=== PATIENT | female | born 1945 | race Caucasian/White ===

== ENCOUNTER 2018-04-30 21:56 | Inpatient (IN) ==
[2018-04-30 23:07] LABS: INR 0.95; PROTIME 13.2 Seconds (11.0-16.0)
[2018-04-30 23:08] LABS: PTT 34.2 Seconds (22.3-41.8)
[2018-04-30 23:11] LABS: BASO# 0.02 X1000 (0.0-0.2); BASO% 0.2 % (0.0-0.8); EOS# 0.07 X1000 (0.0-0.7); EOS% 0.7 % (0.0-10.0); HEMATOCRIT 37.8 % (37.0-47.0); HEMOGLOBIN 12.2 g/dL (12.0-16.0); IMM GRAN# 0.03 X1000 (0.0-0.04); IMM GRAN% 0.3 % (0.0-0.5); LYMPH# 0.79 X1000 (1.2-3.4); LYMPH% 7.8 % (20.5-51.1); MCH 26.3 PG (27-31); MCHC 32.3 g/dL (33-37); MCV 81.5 FL (81-99); MONO# 0.46 X1000 (0.11-0.59); MONO% 4.5 % (1.7-9.3); MPV 9.6 FL (7.4-10.4); NEUT# 8.77 X1000 (1.4-6.5); NEUT% 86.5 % (42.2-75.2); PLT 331 X1000 (130-400); RBC 4.64 XMIL (4.2-5.4); RDW 15.9 % (11.5-14.5); WBC 10.14 X1000 (4.8-10.8)
[2018-04-30 23:15] LABS: CALCIUM 9.5 mg/dL (8.8-10.2); CREATININE 1.1 mg/dL (0.5-0.9); POTASSIUM 4.6 mmol/L (3.5-5.1); TOTAL BILIRUBIN 0.3 mg/dL (0.20-1.00)
--- NOTE | 2018-05-01 01:42 | EKG Report ---
Test Performed on : 04/30/2018 10:01:38 PM Test Reason : cp Blood Pressure : / mmHG Vent. Rate : 081 BPM Atrial Rate : 081 BPM P-R Int : 224 ms QRS Dur : 084 ms QT Int : 376 ms P-R-T Axes : 000 000 005 degrees QTc Int : 436 ms Sinus rhythm. with 1st degree AV block. Possible Anterior infarct , age undetermined Abnormal ECG No previous ECGs available Unconfirmed Result
--- NOTE | 2018-05-01 03:23 | EKG Report ---
Test Performed on : 05/01/2018 02:59:52 AM Test Reason : chest pain Blood Pressure : / mmHG Vent. Rate : 085 BPM Atrial Rate : 085 BPM P-R Int : 188 ms QRS Dur : 084 ms QT Int : 382 ms P-R-T Axes : 111 -03 001 degrees QTc Int : 454 ms Normal sinus rhythm. ST & T wave abnormality, consider anterior ischemia Abnormal ECG When compared with ECG of 30-APR-2018 22:01, (Unconfirmed) [place] interval has decreased Unconfirmed Result
[2018-05-01] MEDS ORDERED: LOVENOX 1 MG/KG SUBQ ONE (03:41)
--- NOTE | 2018-05-01 03:42 | PROVIDER DOCUMENTATION ---
This chart was entered by Prachi Durand Scribe, acting as scribe for Gerald Cazares MD. HPI-Chest Pain - General Chief Complaint: Epigastric Pain Stated Complaint: chest pain but no longer numbness in arm Time Seen by Provider: 04/30/18 23:05 Source: patient Allergies/Adverse Reactions: Patient Allergies Allergy/AdvReac Type Severity Reaction Status Date / Time erythromycin base Allergy HIVES Verified 04/30/18 22:13 [From Erythrocin] Penicillins AdvReac HIVES Verified 12/15/17 07:00 Tetracyclines AdvReac HIVES Verified 12/15/17 07:00 Home Medications: Home Medication List Medication Instructions Recorded Confirmed Last Taken Type Aspirin [Aspir-Low] 81 mg PO DAILY 04/30/18 05/01/18 Unknown History Bisoprolol [Zebeta] 1 tab PO DAILY 04/30/18 05/01/18 Unknown History Esomeprazole [Nexium] 40 mg PO DAILY 04/30/18 05/01/18 Unknown History Fluoxetine HCl [Prozac] 40 mg PO DAILY 04/30/18 05/01/18 Unknown History Fluticasone Propionate [Flonase 2 spray ORDERED DAILY 04/30/18 05/01/18 Unknown History Allergy Relief] Hydrocodone/Acetaminophen 1 each PO BID 04/30/18 05/01/18 Unknown History [Hydrocodone-Acetamin 5-300 mg] Losartan Potassium 100 mg PO DAILY 04/30/18 05/01/18 Unknown History Metformin [Glucophage] 850 mg PO BID CC 04/30/18 05/01/18 Unknown History Montelukast Sodium [Singulair] 10 mg PO DAILY 04/30/18 05/01/18 Unknown History Naproxen 500 mg PO BID 04/30/18 05/01/18 Unknown History ROSUVAstatin [Crestor] 10 mg PO DAILY 04/30/18 05/01/18 Unknown History Apixaban [Eliquis] 5 mg PO BID #60 tab 05/02/18 Unknown Rx Apixaban [Eliquis] 10 mg PO BID #14 tab.ds.pk 05/02/18 Unknown Rx - History of Present Illness-CP Nature of Presenting Problem: pt is a 72 yr old female presenting via EMS with complaint of central chest pain radiating into bilateral arms and epigastrum, pt reports pain resolved prior to arrival to ER, pt reports recent cardiac workup within the last 2-3 months that was normal. pt denies shortness of breath, nausea or vomiting Location: reports: central Chest Pain Radiation: reports: arms (bilateral arms), epigastric Quality of Pain: reports: burning Severity in ED: moderate Onset/Duration: this evening Timing: resolved prior to arrival Context/Activities at Onset: reports: light activity Modifying Factors: improves with: nothing Nitro Today/Relief: no nitro taken today Aspirin Treatment Today: 81 mg x 4, provided by EMS Prior Chest Pain/Cardiac Workup: reports: other (cardiac workup within the last 2-3 months-normal per pt) Similar Symptoms Previously?: Yes Recently Seen Here or By Another Healthcare Provider: Yes Review of Systems - Adult - REVIEW OF SYSTEMS - ADULT Constitutional: reports: no symptoms reported Eyes: denies: blurred vision, double vision Ears, Nose, Mouth & Throat: reports: no symptoms reported Cardiovascular: reports: chest pain. denies: palpitations, syncope Respiratory: denies: cough, shortness of breath Gastrointestinal: reports: nausea. denies: vomiting Genitourinary: reports: no symptoms reported Musculoskeletal: reports: no symptoms reported Integumentary: reports: no symptoms reported Neurological: reports: no symptoms reported Psychiatric: reports: no symptoms reported Endocrine: reports: no symptoms reported Hematologic/Lymphatic: reports: no symptoms reported Allergic/Immunologic: reports: no symptoms reported All Other Systems: Reviewed and Negative Past History - Adult - PAST MEDICAL HISTORY-ADULT Review of Records: reports: Old Records Reviewed, Nursing Assessment Review, Medications Reviewed, Social history reviewed & non-contributory. Major Childhood Illnesses: reports: denies history Cardiovascular: reports: HTN, hyperlipidemia Respiratory: reports: denies history Gastrointestinal: reports: GERD Obstetrical/Gynecological: reports: denies history Genitourinary: reports: denies history Musculoskeletal: reports: chronic pain, osteoporosis, other (bilateral knee DJD) Neurological: reports: denies history Psychiatric: reports: denies history Endocrine/Immune: reports: Diabetes Other Conditions: reports: denies history - PRIOR SURGERIES/PROCEDURES Surgical/Procedure History: reports: reviewed, not pertinent - IMMUNIZATION STATUS Childhood Immunizations: UTD Flu Vaccine: NUTD - FAMILY HISTORY Family History: diabetes, CAD over 55 yo, cancer, CVA/TIA - SOCIAL HISTORY Smoking: quit greater than 1 year Substance Use: denies Living Situation: family Physical Exam-General - PHYSICAL EXAM-ADULT Initial Vital Signs Reviewed: Yes - CONSTITUTIONAL General Appearance: alert, no apparent distress, obese (morbid) - EYES Eyes: PERRL/EOMI - HEAD, EARS, NOSE, MOUTH & THROAT HENMT: normocephalic/atraumatic, moist mucous membranes, normal ENT inspection - NECK Neck: non-tender, full range of motion, supple, normal inspection - RESPIRATORY Respiratory: chest non-tender, lungs clear, normal breath sounds - CARDIOVASCULAR Cardiovascular: normal peripheral pulses, regular rate, rhythm - GASTROINTESTINAL (ABDOMEN) Abdominal Exam: normal bowel sounds, non tender, soft - LYMPHATIC Lymphatic: no adenopathy - MUSCULOSKELETAL Back Exam: normal inspection, no CVA tenderness, no vertebral tenderness Extremity: normal range of motion, non-tender, normal gait, pedal edema (trace) - SKIN Integumentary: normal color, normal turgor, warm/dry - NEUROLOGIC Neurologic: grossly normal, no motor/sensory deficits - PSYCHIATRIC Psych/Mental Status: normal mood/affect, normal thought content, normal thought process, oriented x 3 Progress - PLAN OF CARE/RESULTS Progress/Plan/Lab Results: Orders Category Date Time Status Admit - [facility] Routine AdmDCTranf 05/01/18 03:54 Active Activity - Strict Bedrest ORDERED Care 05/01/18 03:54 Completed Call Admitting on Arrival AT ADMISSION Care 05/01/18 03:55 Completed Cardiac Monitoring DIRECTED Care 04/30/18 22:51 Completed Oxygen Therapy- ED Nursing DIRECTED Care 04/30/18 22:51 Completed Saline Loc NOW Care 04/30/18 22:51 Completed Vital Signs Order Q 8-HR ASSESS Care 05/01/18 03:54 Active Z-Document. for Tele Applied ORDERED Care 05/01/18 03:55 Completed CHEST-2 VIEWS [RAD] Stat Exams 04/30/18 22:[address] ANGIOGRM PULMONARY ARTERIES [CT] Stat Exams 05/01/18 01:24 Completed CBC WITH ELECTRONIC DIFF [HEME] Stat Lab 04/30/18 22:18 Completed CK PROFILE [SP CHEM] Stat Lab 04/30/18 22:18 Completed CK PROFILE [SP CHEM] Stat Lab 05/01/18 03:14 Completed COMPREHENSIVE METABOLIC PANEL [CHEM] Stat Lab 04/30/18 22:18 Completed D-DIMER [COAG] Stat Lab 04/30/18 22:18 Completed PRO B-NATRIURETIC PEPTIDE Stat Lab 04/30/18 22:18 Completed PROTIME WITH INR [COAG] Stat Lab 04/30/18 22:18 Completed PTT [COAG] Stat Lab 04/30/18 22:18 Completed TROPONIN T Stat Lab 04/30/18 22:18 Completed TROPONIN T Stat Lab 05/01/18 03:14 Completed Acetaminophen [Tylenol] Med 05/01/18 03:54 Active 650 mg PO Q6H PRN PRN Enoxaparin 1 mg/kg [Lovenox 1 mg/kg] Med 05/01/18 03:41 Discontinued 1 each SUBQ NOW ONE Enoxaparin [Lovenox] Med 05/01/18 04:00 Discontinued 120 mg SUBQ NOW ONE Ondansetron [Zofran] Med 05/01/18 03:54 Active 4 mg IV Q4H PRN PRN CP/SOB/Palp >45 yrs of Age Stat Oth 04/30/18 22:51 Ordered Oxygen Device Routine Oth 05/01/18 03:55 Completed Telemetry [OM.EQ] Routine Oth 05/01/18 03:54 Active EKG [EKG] Stat Ther 04/30/18 22:51 Draft EKG [EKG] Stat Ther 05/01/18 01:22 Draft Transfer/Admit Order [TRANSFER] Routine Transfer 05/01/18 03:56 Completed Result Diagrams: 05/03/18 05:50 05/03/18 05:50 - EKG 1 Time of EKG reading by physician:: 22:02 EKG Read and Signed by:: Gerald Cazares EKG Interpretation (*Must complete 3 of following elements*): Abnormal ( possible anteroir infarct-age undetermined) Rate: 81 Rhythm: sinus rhythm with 1st degree av block [place]: normal 2 Time of EKG reading by physician:: 03:00 EKG Read and Signed by:: Gerald Cazares EKG Interpretation (*Must complete 3 of following elements*): Abnormal (st and t wave abnormality, consider anteroir ischemia) Rate: 85 Rhythm: nsr [place]: normal QRS: normal SC Interval: normal ST Wave: normal - XRAY 1 XRAY Study: Chest Impression: Abnormal (no acute cardiac pathology, noted aortic knob with calcification) - CT/MRI 1 CT Study: Angiogram, Thorax Impression: Abnormal (acute pulmonary embolism; possible right ventricular strain) - CONSULTS/PCP/HOSPITALIST Notification #1 *Consult/PCP/Hospitalist*: Dr Thorne Time Discussed: 03:40 Consult Disposition: Admit Departure - Departure Date of Disposition Decision: 05/01/18 Time of Disposition Decision: 03:40 DIAGNOSIS: Acute pulmonary embolism Qualifiers: Pulmonary embolism type: unspecified Acute cor pulmonale presence: without acute cor pulmonale Qualified Code(s): I26.99 - Other pulmonary embolism without acute cor pulmonale Disposition: ADMITTED INPATIENT 09 Certified Medical Emergency: Emergent Condition: Serious - Critical Care Note This patient required my direct & personal management of CC.: No Attestation - Physician/ SILVANA Attestation The physician spent face to face time with patient:: Yes Advanced Practice Provider documentation review:: Supervising physician onsite and consulted in the evaluation and care of this patient. The physician did have a face to face encounter with the patient. This chart was documented by the indicated scribe, (Prachi Durand Scribe) and accurately reflects the services I performed and decisions made by me, Gerald Cazares MD, as attested by the provider's signature.
[2018-05-01] MEDS ORDERED: ZOFRAN IV PRN (03:54)
[2018-05-01] MEDS ORDERED: LOVENOX SUBQ ONE (04:00)
--- NOTE | 2018-05-01 08:41 | Diag Imaging Result Doc PS360 ---
CHEST-2 VIEWS - 04/30/2018 INDICATION: chest pain COMPARISON: 12/15/2017 FINDINGS: The lungs are normally expanded and clear. Heart size and mediastinal contours are normal. No pneumothorax or pleural effusion. IMPRESSION: Negative exam. Electronically signed by Surinder Rangel 05/01/2018 8:38 AM
[2018-05-01 08:54] LABS: BASO# 0.02 X1000 (0.0-0.2); BASO% 0.2 % (0.0-0.8); EOS# 0.15 X1000 (0.0-0.7); EOS% 1.2 % (0.0-10.0); HEMATOCRIT 39.1 % (37.0-47.0); HEMOGLOBIN 12.7 g/dL (12.0-16.0); IMM GRAN# 0.06 X1000 (0.0-0.04); IMM GRAN% 0.5 % (0.0-0.5); LYMPH# 2.11 X1000 (1.2-3.4); LYMPH% 17.4 % (20.5-51.1); MCHC 32.5 g/dL (33-37); MONO# 0.86 X1000 (0.11-0.59); MONO% 7.1 % (1.7-9.3); MPV 9.2 FL (7.4-10.4); NEUT# 8.91 X1000 (1.4-6.5); NEUT% 73.6 % (42.2-75.2); PLT 400 X1000 (130-400); RBC 4.89 XMIL (4.2-5.4); RDW 15.8 % (11.5-14.5); WBC 12.11 X1000 (4.8-10.8)
[2018-05-01 09:16] LABS: ALBUMIN 4.2 g/dL (3.5-5.0); CREATININE 1.2 mg/dL (0.5-0.9); POTASSIUM 4.3 mmol/L (3.5-5.1); TOTAL BILIRUBIN 0.3 mg/dL (0.20-1.00); TOTAL PROTEIN 7.1 g/dL (6.3-8.3)
--- NOTE | 2018-05-01 09:54 | Diag Imaging Result Doc PS360 ---
CT ANGIOGRM PULMONARY ARTERIES - 05/01/2018 INDICATION: chest pain TECHNIQUE: Axial CT images were obtained after administering intravenous contrast. Coronal MIP images were generated. COMPARISON: None FINDINGS: There are numerous acute pulmonary emboli bilaterally involving all the lobar arteries and numerous segmental arteries. The right ventricle is somewhat dilated, there may be right heart strain as a result. Overall the heart size is normal. No mass or adenopathy. The lungs are clear of infiltrate. There are moderate degenerative changes of the spine. No acute or suspicious bony lesion. IMPRESSION: Extensive bilateral acute pulmonary embolism. Right heart strain. This report was discussed with Dr. Cazares on 05/01/2018 at 3:16 AM and was readback. This exam was performed using automated exposure control, adjustment of mA or kV according to patient size, and/or use of iterative reconstruction technique Electronically signed by Surinder Rangel 05/01/2018 9:52 AM
--- NOTE | 2018-05-01 15:32 | HISTORY AND PHYSICAL ---
CHIEF COMPLAINT: Shortness of breath, chest pain. HISTORY OF PRESENT ILLNESS: This is a 72-year-old female with a history of hypertension, diabetes mellitus and gastroesophageal reflux disease. She presented to the emergency room after having a sudden onset of central chest pain that radiated into both arms. She stated this started while she was walking back from her bathroom to her bed. She stated she had a sudden onset of shortness of breath, feeling like she could not get her breath. She experienced epigastric burning. She denied any syncope or palpitations. The patient has had chest pain over the past few months although it was nothing like this, in fact she had a myocardial perfusion scan on April 05 that was a low risk for ischemic events with no scintigraphic evidence pharmacologically induced myocardial ischemia. She had EF of 77% with normal ventricular wall motions at that time. She was found to have an elevated D-dimer therefore CTA pulmonary was performed which revealed extensive bilateral acute pulmonary embolism with right heart strain. PAST MEDICAL HISTORY: Hypertension, diabetes mellitus, gastroesophageal reflux disease. PAST SURGICAL HISTORY: Cholecystectomy, appendectomy, arthroscopy, hysterectomy, tonsillectomy. SOCIAL HISTORY: She denies alcohol, tobacco, or illicit drug use. ALLERGIES: Erythromycin, penicillin and tetracyclines all cause hives. HOME MEDICATIONS: A list will be obtained by the nursing staff. Once verified will review and restart as appropriate. REVIEW OF SYSTEMS: Discussed with the patient with pertinent positives stated in the HPI. She denied any syncope, dizziness, productive cough, fever, chills, any night sweats, any nausea, vomiting, diarrhea, constipation, black or bloody vomitus or stools, any hematuria, dysuria, frequency, urgency. PHYSICAL EXAMINATION: GENERAL: This is a 72-year-old female who is sitting up in the bed in no distress. VITAL SIGNS: Blood pressure is 139/72 with a heart rate of 79, respirations are 18, temperature is 97.8 degrees oral with room air saturations 96 to 98%. HEENT: Pupils equal, round, react to light EOMs are intact sclerae anicteric. Head is normocephalic, atraumatic. Mucous membranes are moist. NECK: Supple with trachea midline. CARDIOVASCULAR: Regular rate and rhythm. S1 and S2 appreciated. She has no lower extremity edema with peripheral pulses palpable x4 extremities. PULMONARY: Breath sounds are clear. Chest rises and falls symmetrically with respiration. Chest wall is nontender to palpation. GASTROINTESTINAL: Abdomen soft, nontender, nondistended with bowel sounds in all 4 quadrants. NEUROLOGIC: She is alert and oriented x3. LABS: WBC is 10.1 with a hemoglobin of 12.2, hematocrit 37.8, platelets of 331,000, D-dimer is 3.38. Sodium 137, potassium 4.6, BUN 34 with a creatinine of 1.1, glucose is 128. Troponins are negative on multiple occasions with a proBNP of 489 [*] 0.070, 0.107, 0.086. Pulmonary arteriogram revealed extensive bilateral acute pulmonary emboli with right heart strain. Lungs are clear of infiltrate. Heart size is normal with no mass or adenopathy. ASSESSMENT AND PLAN: 1. Bilateral pulmonary embolus. 2. Shortness of breath secondary to #1. 3. Chest pain secondary to #1. 4. Hypertension. 5. Gastroesophageal reflux disease. 6. Diabetes mellitus. PLAN: 1. The patient has been admitted to the medical-surgical floor and placed on telemetry. We will start incentive spirometer. We will obtain echocardiogram as well as bilateral lower extremity Doppler. We will give supplemental oxygen as needed. We will encourage her to be up in the chair. Will obtain hypercoagulable studies and repeat a CBC and a BMP in the morning. She will be placed on pattern blood glucose with sliding scale insulin. She was given Lovenox in the emergency room 1 mg/kg. Will give this every 12 hours and will have social media developer check on Eliquis affordability. We will continue her home medicines. Will hold her Glucophage for the next 48 hours as she did have IV contrast. 2. For GI prophylaxis will continue her home medications. Further treatments pending hospital course. Dictated by SHNATHI Kohli for Vinny Allen MD This chart was documented by, SHANTHI Kohli and accurately reflects the services performed, treatment plan and medical decisions as attested by the providers signature Vinny Allen MD. cc: SHANTHI Kohli MD
--- NOTE | 2018-05-01 16:42 | ECHO REPORT ---
ORDER DATE: 05/01/2018 ECHOCARDIOGRAPHIC MEASUREMENTS: 1. Interventricular septum 1.2, left ventricular posterior wall 1.0, diastolic diameter 4.3, systolic diameter 2.5, left atrium 3.8, aorta 3.0. 2. Aortic valve leaflets are trileaflet. 3. Pulmonic valve was normal. 4. Mitral valve was normal. 5. Tricuspid valve was normal. 6. Aortic valve leaflets are trileaflet. 7. Normal left ventricular cavity size. Estimated ejection fraction of 65 to 70%. 8. There is mild left atrial enlargement. 9. There is mild diastolic dysfunction. 10. There is mild mitral regurgitation. 11. There is no aortic stenosis or regurgitation. 12. Peak velocity across the tricuspid valve was 3.3 m/sec. Pulmonary artery systolic pressure of 53 mmHg. There is moderate tricuspid regurgitation. 13. There is no pericardial effusion or obvious intracardiac mass or thrombus seen. 14. Right ventricle was mildly dilated. cc: MD Yuliana Hidalgo CRNP
[2018-05-01] MEDS: LOVENOX SUBQ SCH (17:04)
[2018-05-01] MEDS: HUMALOG (PARKWAY) SUBQ SCH ×2 (17:04→21:11)
--- NOTE | 2018-05-01 19:39 | HISTORY AND PHYSICAL ---
CHIEF COMPLAINT: Shortness of breath. HISTORY AND PHYSICAL ADDENDUM: Patient seen and examined by myself. Full note dictated and discussed with nurse practitioner. Patient presented to the hospital with chest pain and shortness of breath. She was subsequently diagnosed with pulmonary emboli. Interesting, both her son and daughter are on Eliquis for DVT. We will admit patient to the hospital, place her on Lovenox. We will continue to follow. If her insurance will pay for Eliquis, she may be able to discharge home in the a.m.. cc: Vinny Allen MD
[2018-05-01] MEDS: CRESTOR PO SCH (21:06)
[2018-05-01] MEDS: TYLENOL PO PRN (21:11)
[2018-05-02] MEDS: LOVENOX SUBQ SCH ×3 (06:07→18:06)
[2018-05-02] MEDS: NEXIUM PO SCH (06:07)
[2018-05-02 06:11] LABS: HEMATOCRIT 37.4 % (37.0-47.0); HEMOGLOBIN 11.8 g/dL (12.0-16.0); MCH 25.7 PG (27-31); MCHC 31.6 g/dL (33-37); MCV 81.3 FL (81-99); MPV 9.2 FL (7.4-10.4); RBC 4.6 XMIL (4.2-5.4); WBC 9.07 X1000 (4.8-10.8)
[2018-05-02 06:24] LABS: CALCIUM 9.7 mg/dL (8.8-10.2); CREATININE 1.3 mg/dL (0.5-0.9); POTASSIUM 4.4 mmol/L (3.5-5.1)
[2018-05-02] MEDS: HUMALOG (PARKWAY) SUBQ SCH ×4 (06:46→22:33)
[2018-05-02] MEDS: COZAAR PO SCH (09:40)
[2018-05-02] MEDS: PROZAC PO SCH (09:40)
[2018-05-02] MEDS: FLONASE NAS SCH (09:41)
--- NOTE | 2018-05-02 11:16 | Extremity Venous Study ---
EXAM: Venous U/S Bilateral Legs HISTORY: bilateral PE TECHNIQUE: Brown scale, color Doppler, and duplex evaluation was performed. COMPARISON: None. FINDINGS: The deep veins of the left lower extremity demonstrate noncompressible distal left femoral, popliteal, and gastrocnemius veins consistent with acute DVT. There is no evidence for DVT right lower extremity.. The superficial veins appear patent. IMPRESSION: Deep venous thrombosis distal left femoral, popliteal, and gastrocnemius veins. The floor was notified by the rn vascular. Electronically signed by Nanci Ring 05/02/2018 11:13 AM
--- NOTE | 2018-05-02 20:27 | PROGRESS NOTE ---
DATE: 05/02/2018 SUBJECTIVE: Patient has no major complaints, just weakness and a little bit of shortness of breath with ambulation. OBJECTIVE: Vital signs: Blood pressure 132/54, heart rate of 73, respiratory rate 18, temperature 98.1 degrees, 95% on room air. Cardiovascular: Regular rate and rhythm. Pulmonary: Diminished at the bases. Gastrointestinal: Soft, nontender, nondistended. Bowel sounds were positive. LABORATORY DATA: White count is 9, hemoglobin 11, hematocrit 37, platelets 345, 000. Creatinine 1.3. PROBLEM LIST: 1. Acute pulmonary embolism (PE). We will continue treatment with anticoagulation and transition her to Eliquis once we can confirm it is supported. 2. Putative pneumonia. She is not on any antibiotics. Probably a pulmonary infarct. 3. Left lower extremity deep vein thrombosis (DVT). Continue anticoagulation. Hypercoagulable workup in place. 4. Hypertension. We will continue medicines. DISPOSITION: I anticipate discharge in the next 1 to 2 days pending her clinical status. We will continue to follow closely. cc: Randal Cuello MD MTDD
[2018-05-02] MEDS: CRESTOR PO SCH (22:33)
[2018-05-02] MEDS: TYLENOL PO PRN (22:38)
[2018-05-03] MEDS: HUMALOG (PARKWAY) SUBQ SCH ×3 (06:19→21:30)
[2018-05-03] MEDS: NEXIUM PO SCH (06:21)
[2018-05-03] MEDS: LOVENOX SUBQ SCH ×2 (06:21→18:14)
[2018-05-03 06:29] LABS: BASO# 0.02 X1000 (0.0-0.2); BASO% 0.3 % (0.0-0.8); EOS# 0.31 X1000 (0.0-0.7); EOS% 4.3 % (0.0-10.0); HEMATOCRIT 32.4 % (37.0-47.0); HEMOGLOBIN 10.1 g/dL (12.0-16.0); IMM GRAN# 0.05 X1000 (0.0-0.04); IMM GRAN% 0.7 % (0.0-0.5); LYMPH# 1.91 X1000 (1.2-3.4); LYMPH% 26.8 % (20.5-51.1); MCH 25.3 PG (27-31); MCHC 31.2 g/dL (33-37); MCV 81.2 FL (81-99); MONO# 0.58 X1000 (0.11-0.59); MONO% 8.1 % (1.7-9.3); MPV 9.6 FL (7.4-10.4); NEUT# 4.26 X1000 (1.4-6.5); NEUT% 59.8 % (42.2-75.2); PLT 291 X1000 (130-400); RBC 3.99 XMIL (4.2-5.4); RDW 15.8 % (11.5-14.5); WBC 7.13 X1000 (4.8-10.8)
[2018-05-03 06:38] LABS: CREATININE 1.2 mg/dL (0.5-0.9)
[2018-05-03] MEDS: COZAAR PO SCH (10:34)
[2018-05-03] MEDS: PROZAC PO SCH (10:34)
[2018-05-03] MEDS: FLONASE NAS SCH (10:35)
[2018-05-03] MEDS ORDERED: ATARAX PO PRN (13:25)
[2018-05-03] MEDS ORDERED: NORCO-5 PO ONE (17:08)
[2018-05-03] MEDS: HYDROCORTISONE 0.5% CREAM TOP SCH ×2 (18:15→21:32)
--- NOTE | 2018-05-03 18:58 | Diag Imaging Result Doc PS360 ---
EXAM: SHOULDER-LEFT 05/03/2018 HISTORY: pain in shoulder TECHNIQUE: Left shoulder two views COMMENT: There is an apparent bone island in the humeral head. There is no evidence of acute fracture or dislocation. IMPRESSION: No acute bony abnormality. Electronically signed by Lanre Frnech 05/03/2018 6:56 PM
[2018-05-03] MEDS ORDERED: NORCO-7.5 PO PRN (20:05)
--- NOTE | 2018-05-03 20:29 | PROGRESS NOTE ---
DATE: 05/03/2018 SUBJECTIVE: Patient has no major complaints except for left shoulder pain. OBJECTIVE: Vital Signs: Blood pressure is 136/70, heart rate of 78, respiratory rate 18, temperature was 98.1, 97% on room air. Cardiovascular: Regular rate and rhythm. Pulmonary: Bilateral breath sounds. Clear to auscultation. Gastrointestinal: Soft, nontender, nondistended. Bowel sounds are positive. LABORATORY DATA: White count 7, hemoglobin and hematocrit 10 and 32, platelets 291,000. Creatinine of 1.2. Phospholipid antibodies negative. Protein INSTRUMENT ADJUSTER activity are normal. PROBLEM LIST: 1. Acute PE and DVT, currently on Lovenox. I think I will probably transition to Eliquis in the morning, make sure she is doing okay. 2. Left shoulder pain. May be just musculoskeletal. We will continue pain control and follow. 3. Hypertension. Continue her regular medications, which are losartan and Zebeta. DISPOSITION: I anticipate if she is stable possible discharge tomorrow. There is some concern over possible PFO, so we will get the bubble study/echo to evaluate for PFO. cc: Randal Cuello MD [facility]
[2018-05-03] MEDS ORDERED: NORCO-5 PO SCH (21:00)
[2018-05-03] MEDS: CRESTOR PO SCH (21:32)
[2018-05-03] MEDS: VOLTAREN 1% GEL TOP SCH (21:32)
[2018-05-04] MEDS: NEXIUM PO SCH ×2 (05:45→06:00)
[2018-05-04] MEDS: HUMALOG (PARKWAY) SUBQ SCH ×3 (06:00→17:13)
[2018-05-04 06:18] LABS: BASO# 0.03 X1000 (0.0-0.2); BASO% 0.4 % (0.0-0.8); EOS# 0.33 X1000 (0.0-0.7); EOS% 4.5 % (0.0-10.0); HEMATOCRIT 32.5 % (37.0-47.0); HEMOGLOBIN 10.1 g/dL (12.0-16.0); IMM GRAN# 0.07 X1000 (0.0-0.04); IMM GRAN% 0.9 % (0.0-0.5); LYMPH# 1.81 X1000 (1.2-3.4); LYMPH% 24.5 % (20.5-51.1); MCH 25.4 PG (27-31); MCHC 31.1 g/dL (33-37); MCV 81.7 FL (81-99); MONO# 0.66 X1000 (0.11-0.59); MONO% 8.9 % (1.7-9.3); MPV 9.8 FL (7.4-10.4); NEUT% 60.8 % (42.2-75.2); PLT 290 X1000 (130-400); RBC 3.98 XMIL (4.2-5.4); RDW 15.6 % (11.5-14.5)
[2018-05-04 06:28] LABS: CALCIUM 9.2 mg/dL (8.8-10.2); CREATININE 1.3 mg/dL (0.5-0.9); POTASSIUM 3.6 mmol/L (3.5-5.1)
[2018-05-04] MEDS: COZAAR PO SCH (08:51)
[2018-05-04] MEDS: PROZAC PO SCH (08:51)
[2018-05-04 08:54] LABS: BILIRUBIN URINE NEGATIVE (NEGATIVE); BLOOD URINE NEGATIVE (NEGATIVE); CLARITY CLEAR (CLEAR); COLOR YELLOW; GLUCOSE URINE NEGATIVE (NEGATIVE); KETONE URINE NEGATIVE (NEGATIVE); LEUKOCYTES URINE 1+ (NEGATIVE); NITRITE URINE NEGATIVE (NEGATIVE); PH URINE 6.5; PROTEIN URINE NEGATIVE (NEGATIVE); UROBILINOGEN URINE NORMAL
[2018-05-04] MEDS: FLONASE NAS SCH (08:54)
[2018-05-04] MEDS: VOLTAREN 1% GEL TOP SCH ×3 (08:54→16:18)
[2018-05-04] MEDS: HYDROCORTISONE 0.5% CREAM TOP SCH (08:54)
[2018-05-04 08:55] LABS: URINE BACTERIA 2+ /HFP; URINE SOURCE CLEAN CATCH
[2018-05-04] MEDS ORDERED: SINGULAIR PO SCH (09:00)
[2018-05-04] MEDS ORDERED: ELIQUIS PO SCH (09:00)
[2018-05-04] MEDS ORDERED: ZEBETA PO SCH (09:00)
--- NOTE | 2018-05-04 14:17 | ECHO REPORT ---
ORDER DATE: 05/03/2018 ECHOCARDIOGRAM: INDICATION: CVA. History of DVT, PE. Evaluate for PFO. FINDINGS: 1. PFO findings the left ventricle appears to have normal LV systolic function. 2. No mitral prolapse. Mild mitral regurgitation. 3. Mild tricuspid regurgitation. 4. No pericardial effusion seen. 5. With injection of agitated saline contrast, there is no clear evidence of [id number] shunting seen. No clear evidence of patent foramen ovale on this study. Color Doppler evaluation of the atrial septum did not clearly demonstrate any evidence of shunting across the atrial septum. cc: MD Randal Hayes MD
[2018-05-04 14:30] VITALS: BP 126/47
--- NOTE | 2018-05-04 21:43 | DISCHARGE SUMMARY ---
ADMISSION DATE: 05/01/2018 DISCHARGE DATE: 05/04/2018 DISCHARGE ADDENDUM: She is doing well day of discharge. No major complaints. No major confusion or anything to that effect. Plan will be to discharge her today in stable condition. She is actually off oxygen, 98% on room air. No complaints except for her left shoulder. Feels stable for discharge today with follow up with Dr. Malone. Hematology to follow up on her hypercoagulable workup and Dr. Tian. She did have a bubble study done here which showed no obvious PFO, so I do not think her stroke had any relation to VTE. I will defer to Dr. Tian concerning any other treatment options. We will continue to follow closely. cc: Randal Cuello MD
--- NOTE | 2018-05-05 14:53 | DISCHARGE SUMMARY ---
ADMISSION DATE: 05/01/2018 DISCHARGE DATE: 05/04/2018 PRIMARY CARE PHYSICIAN: Listed as none. ADMISSION DIAGNOSES: 1. Bilateral pulmonary emboli. 2. Shortness of breath secondary to #1. 3. Chest pain secondary to #1. 4. Hypertension. 5. Gastroesophageal reflux disease. 6. Diabetes. DISCHARGE DIAGNOSES: 1. Bilateral pulmonary emboli. 2. Shortness of breath secondary to #1 improved. 3. Chest pain secondary to #1 resolved. 4. Hypertension. 5. Gastroesophageal reflux disease. 6. Diabetes. SUMMARY OF FINDINGS: This is a 72-year-old female who presented to the ER with complaints of acute onset of central chest pain that radiated into both arms. She stated this started while she was walking back from her bathroom to her bed, and noticed a sudden onset of shortness of breath feeling like she could not get her breath, and experienced some epigastric burning. She states that she had had chest pain over the past few months, but nothing like it presented with. She had a myocardial perfusion scan back on 04/05 that showed a low risk for ischemic event, and had an EF of 77%. She did have a D-dimer that was elevated so we did a CTA that revealed extensive bilateral acute pulmonary embolism and a right heart strain. She was placed on Lovenox 1 mg/kg every 12 hours. We did hypercoagulable studies, and she will follow up with Hematology Dr. Malone for those results. We did do a bubble study that showed no obvious PFO, but she will also follow up with Cardiology. She was started on Eliquis 10 mg p.o. b.i.d. She will do that for 14 days, and then she will be on 5 mg p.o. b.i.d. It is now felt that she can safely be discharged home. She will have a prescription for the Eliquis 10 mg p.o. b.i.d. #14 with no refills. Then, she will take Eliquis 5 mg p.o. b.i.d. #60 with 2 refills, aspirin 81 mg p.o. daily, Zebeta 5 mg p.o. daily, Nexium 40 mg p.o. daily, Prozac 40 mg p.o. daily, Flonase nasal spray 2 sprays daily, [place] 5 one p.o. b.i.d., losartan 100 mg p.o. daily, metformin 1000 mg p.o. b.i.d. #60 with 1 refill, montelukast sodium 10 mg p.o. daily, rosuvastatin 10 mg p.o. daily, Januvia 50 mg p.o. daily #30 with 1 refill. FOLLOW-UP: She will need to follow up with Dr. Malone, hematology in 3 to 4 weeks and call the office to schedule that appointment. All discharge instructions were reviewed with the patient, and she verbalized understanding. TIME SPENT: 35 minute discharge. Dictated by SHANTHI Garcia for Randal Cuello MD cc: SHANTHI Garcia MD Dr. Lobo Luis N. Villanueva, MD
== END 2018-05-04 19:45 | disposition home or self-care (01) | DRG 176 ==
LOC: P.ED 21:56 → SUATTDRO 05-01 04:32 → P.MEDSURG 05-01 04:32
PROVIDERS: ATTEND Internal Medicine
CPT/HCPCS: 71020; 71046; 71275; 73030; 80048; 80053; 81001; 81240; 81241; 82550; 82948; 83090; 83880; 84484; 85025; 85027; 85300; 85301; 85302; 85306; 85379; 85610; 85612; 85613; 85730; 86147; 87077; 87088; 87186; 93005; 93306; 93308; 93970; 94761; 94799; 96372; 99285; A9270; C8929; J1650; J1815; Q9957; Q9967; XXXXX

== ENCOUNTER 2018-05-07 11:39 | Inpatient (IN) ==
[2018-05-07] MEDS ORDERED: ASPIRIN PO ONE (11:47)
[2018-05-07 12:28] LABS: BASO# 0.04 X1000 (0.0-0.2); BASO% 0.3 % (0.0-0.8); EOS# 0.27 X1000 (0.0-0.7); EOS% 1.7 % (0.0-10.0); HEMATOCRIT 38.9 % (37.0-47.0); HEMOGLOBIN 12.2 g/dL (12.0-16.0); IMM GRAN# 0.09 X1000 (0.0-0.04); IMM GRAN% 0.6 % (0.0-0.5); LYMPH# 0.95 X1000 (1.2-3.4); MCH 25.8 PG (27-31); MCHC 31.4 g/dL (33-37); MCV 82.4 FL (81-99); MONO# 0.72 X1000 (0.11-0.59); MONO% 4.5 % (1.7-9.3); MPV 9.9 FL (7.4-10.4); NEUT# 13.78 X1000 (1.4-6.5); NEUT% 86.9 % (42.2-75.2); PLT 325 X1000 (130-400); RBC 4.72 XMIL (4.2-5.4); RDW 16.5 % (11.5-14.5); WBC 15.85 X1000 (4.8-10.8)
--- NOTE | 2018-05-07 12:31 | EKG Report ---
Test Performed on : 05/07/2018 11:55:16 AM Test Reason : CP Blood Pressure : / mmHG Vent. Rate : 070 BPM Atrial Rate : 070 BPM P-R Int : 192 ms QRS Dur : 084 ms QT Int : 426 ms P-R-T Axes : 062 -04 -07 degrees QTc Int : 460 ms Normal sinus rhythm. with sinus arrhythmia. T wave abnormality, consider anterior ischemia Abnormal ECG When compared with ECG of 01-MAY-2018 02:59, (Unconfirmed) ST no longer depressed in Inferior leads Nonspecific T wave abnormality now evident in Lateral leads Unconfirmed Result
[2018-05-07 12:39] LABS: ALBUMIN 4.3 g/dL (3.5-5.0); CALCIUM 9.5 mg/dL (8.8-10.2); CREATININE 1.2 mg/dL (0.5-0.9); TOTAL BILIRUBIN 0.4 mg/dL (0.20-1.00); TOTAL PROTEIN 7.6 g/dL (6.3-8.3)
[2018-05-07 12:42] LABS: INR 1.15; PROTIME 15.3 Seconds (11.0-16.0); PTT 25.2 Seconds (22.3-41.8)
--- NOTE | 2018-05-07 14:03 | Diag Imaging Result Doc PS360 ---
EXAM: CHEST-2 VIEWS HISTORY: cp TECHNIQUE: Chest two views COMPARISON: 04/30/2018 FINDINGS: The lungs are well expanded. The heart is borderline mildly prominent. The vessels are not distended. There are mild increased interstitial markings in the left lung base. No pleural effusions. IMPRESSION: There appears to be a small left lower lobe infiltrate. Electronically signed by Denzel Stern 05/07/2018 2:01 PM
[2018-05-07] MEDS ORDERED: ROCEPHIN 1 GM in NS 50 ML IV ONE (16:01)
[2018-05-07] MEDS ORDERED: NORCO-5 PO ONE (16:05)
--- NOTE | 2018-05-07 16:44 | EKG Report ---
Test Performed on : 05/07/2018 1:59:20 PM Test Reason : repeat Blood Pressure : / mmHG Vent. Rate : 071 BPM Atrial Rate : 071 BPM P-R Int : 186 ms QRS Dur : 082 ms QT Int : 404 ms P-R-T Axes : 091 013 031 degrees QTc Int : 439 ms Normal sinus rhythm. with sinus arrhythmia. Normal ECG When compared with ECG of 07-MAY-2018 11:55, (Unconfirmed) T wave inversion less evident in Anterior leads Unconfirmed Result
[2018-05-07] MEDS: ZITHROMAX 500 MG/NS 500 MG/250 ML IVPB IV SCH (17:47)
--- NOTE | 2018-05-07 18:00 | HISTORY AND PHYSICAL ---
PRIMARY CARE PHYSICIAN: Listed as none. CHIEF COMPLAINT: Worsening shortness of breath since being discharged on 2018 after having a PE bilaterally a DVT. HISTORY OF PRESENTING ILLNESS: This is a 72-year-old female who presents to [facility] ER with complaints of worsening shortness of breath and some chest pain. States she was discharged from the hospital on after she was diagnosed with bilateral PE and DVT behind her left knee. States she had been taking her Eliquis 10 mg b.i.d. but that she did miss 1 dose the night she was discharged stating that the pharmacy had already closed when she got there but otherwise she has been taking her medication. She states she has also been doing her incentive spirometer and despite that she continued to feel short of breath that was worsening. Her workup showed a white blood cell count of 15.85, we did a chest x-ray that showed a small left lower lobe infiltrate and so she was being admitted for further evaluation and treatment. PAST MEDICAL HISTORY: Of bilateral pulmonary emboli and left lower extremity DVT diagnosed on 05/01/2018 for which she is on current Eliquis, she has hypertension, diabetes type 2 and GERD. PAST SURGICAL HISTORY: Of a cholecystectomy, appendectomy, arthroscopy, hysterectomy and a tonsillectomy. FAMILY HISTORY: Reviewed and noncontributory. SOCIAL HISTORY: She currently lives with her . Denies any tobacco, alcohol or illicit drug use. ALLERGIES: To erythromycin and penicillin and tetracycline. HOME MEDICATIONS: Will need to obtain a current list and restart as appropriate. I have placed an order for nursing to update and confirm home medication. LABORATORY DATA: Showed a white blood cell count of 15.85, hemoglobin 12.2, hematocrit 38.9, platelets 325,000, PT/INR of 15.3 and 1.15 with a D-dimer of 2.75. Sodium 140, potassium 5, chloride 102, CO2 19, BUN of 39, creatinine 1.2, glucose 112. Cardiac enzymes x2 sets were negative. ProBNP of 1961. Chest x-ray showed a small left lower lobe infiltrate. EKG with normal sinus rhythm. REVIEW OF SYSTEMS: She denied any fever, chills, blurred vision, dizziness, chest pain. She was positive for some chest pain, shortness of breath, nonproductive cough. Denied any abdominal pain, constipation, diarrhea, burning or hurting with urination. PHYSICAL EXAMINATION: On arrival she had a temperature of 97.8 degrees, pulse 69, respirations 20, blood pressure 144/71, saturating 97% on room air. GENERAL: This is a 72-year-old female who is sitting up and answers questions appropriately. HEENT: Normocephalic and atraumatic. Extraocular movements are intact. Normal ENT inspection. Oropharynx and nares are clear. Pupils are equal, round, reactive to light accommodation. NECK: Normal inspection, normal range of motion. LUNGS: With decreased breath sounds to her left lower lobe otherwise clear. Equal lung expansion. Chest wall movement noted. HEART: With regular rate and rhythm. No murmurs, rubs, or gallops. ABDOMEN: Soft, nontender, nondistended. Bowel sounds are present x4 quadrants. MUSCULOSKELETAL: She has 5/5 strength x4 extremities. NEUROLOGICAL: The cranial nerves 2-12 appear grossly intact. ASSESSMENT: 1. Left lower lobe pneumonia. 2. Dyspnea. 3. Recent diagnosed with bilateral pulmonary embolism. 4. A recent diagnosis of left lower extremity deep vein thrombosis . PLAN: She will be admitted to the medical unit at [place], placed on telemetry , O2 per protocol, incentive spirometry, healthy heart diet. We have obtained blood cultures x2 that are pending. We will obtain a lactate and sputum culture. Place on Rocephin 1 gram IV q.24, azithromycin 500 IV q.24, DuoNeb q.4 hours, Eliquis 10 mg p.o. b.i.d. We need to update and confirm home medications and we will restart as appropriate and further orders after seen by attending. Dictated by SHANTHI Garcia for Leeroy Veliz MD cc: SHANTHI Garcia MD [facility]
[2018-05-07] MEDS: DUONEB (A & A) INH SCH ×2 (19:34→23:06)
--- NOTE | 2018-05-07 22:10 | HISTORY AND PHYSICAL ---
ADDENDUM: I saw the patient [id number], and fully agree with the assessment and plan of nurse practitioner Chayito Coles. This is a 72-year-old female who was just last week diagnosed as having acute pulmonary embolism, along with lower extremity deep vein thrombosis. She presented to the emergency department with dyspnea and some chest pain. She was noticed to have a left lower lobe infiltrate, and she reports that she missed a single dose of Eliquis. We will admit the patient to the floor and continue or restart Eliquis at 10 mg orally twice daily. We will also give her IV fluids and initiate her on broad-spectrum antibiotics for her pneumonia. Further recommendations will be given as per hospital course. cc: Leeroy Veliz MD
[2018-05-07] MEDS: HUMALOG (PARKWAY) SUBQ SCH (22:14)
[2018-05-07] MEDS ORDERED: TYLENOL PO PRN (22:15)
[2018-05-07] MEDS: CRESTOR PO SCH (22:22)
[2018-05-07] MEDS: ELIQUIS PO SCH (22:22)
[2018-05-07] MEDS: NORCO-5 PO SCH (22:22)
[2018-05-07] MEDS: NS 1,000 ML IV SCH (23:57)
[2018-05-08] MEDS: DUONEB (A & A) INH SCH ×7 (03:43→23:17)
[2018-05-08] MEDS: HUMALOG (PARKWAY) SUBQ SCH ×4 (06:25→21:38)
[2018-05-08 07:20] LABS: BASO# 0.02 X1000 (0.0-0.2); BASO% 0.3 % (0.0-0.8); EOS# 0.12 X1000 (0.0-0.7); EOS% 1.6 % (0.0-10.0); HEMATOCRIT 32.9 % (37.0-47.0); IMM GRAN# 0.05 X1000 (0.0-0.04); IMM GRAN% 0.7 % (0.0-0.5); LYMPH# 1.03 X1000 (1.2-3.4); LYMPH% 13.4 % (20.5-51.1); MCH 25.3 PG (27-31); MCHC 30.4 g/dL (33-37); MCV 83.3 FL (81-99); MONO# 0.79 X1000 (0.11-0.59); MONO% 10.3 % (1.7-9.3); MPV 9.7 FL (7.4-10.4); NEUT# 5.66 X1000 (1.4-6.5); NEUT% 73.7 % (42.2-75.2); PLT 286 X1000 (130-400); RBC 3.95 XMIL (4.2-5.4); RDW 16.3 % (11.5-14.5); WBC 7.67 X1000 (4.8-10.8)
[2018-05-08 07:48] LABS: CALCIUM 8.7 mg/dL (8.8-10.2); CREATININE 1.2 mg/dL (0.5-0.9); POTASSIUM 4.3 mmol/L (3.5-5.1)
[2018-05-08] MEDS: NORCO-5 PO SCH ×2 (08:49→21:34)
[2018-05-08] MEDS: JANUVIA PO SCH (08:49)
[2018-05-08] MEDS: ELIQUIS PO SCH ×2 (08:49→21:34)
[2018-05-08] MEDS: PROZAC PO SCH (08:49)
[2018-05-08] MEDS: GLUCOPHAGE PO SCH ×2 (08:50→18:05)
[2018-05-08] MEDS: SINGULAIR PO SCH (08:50)
[2018-05-08] MEDS: COZAAR PO SCH (08:50)
[2018-05-08] MEDS: ZEBETA PO SCH (08:50)
[2018-05-08] MEDS: NEXIUM PO SCH (08:50)
[2018-05-08] MEDS: ROCEPHIN 1 GM in NS 50 ML IV SCH (09:31)
--- NOTE | 2018-05-08 12:01 | PROGRESS NOTE ---
DATE: 05/08/2018 SUBJECTIVE: Patient feels better this morning and denies having any acute complaints. OBJECTIVE: Vital Signs: Temperature 97.5 degrees, pulse 74 per minute, respiratory rate 20 per minute, blood pressure 141/56, pulse oximetry 95% on room air. General: Patient is alert and oriented x3. She does not appear to be in any acute distress. Cardiovascular System: First and second heart sounds are audible without any murmurs or gallops. Respiratory System: No respiratory distress noted. Bilateral lung air entry is good without any rales or rhonchi. Gastrointestinal system: Abdomen is soft and nondistended. DIAGNOSTIC DATA: CBC shows WBC count of 7.67, hemoglobin 10.0, hematocrit 32.9, and platelet count of 286,000. Chemistry showed BUN of 29 and creatinine 1.2. Rest of the basic metabolic panel is nondiagnostic. IMPRESSIONS: 1. Left lower lobe pneumonia. 2. Recently diagnosed acute pulmonary embolism. 3. Lower extremity deep vein thrombosis. 4. Type 2 diabetes mellitus. 5. Hypertension. 6. Dyslipidemia. 7. Dehydration. PLAN: We are going to continue with IV ceftriaxone along with IV azithromycin. We are also going to continue with the IV fluid normal saline at 75 mL an hour and continue with her routine home medications. We will also continue with lispro insulin as per sliding scale. She is going to continue with apixaban 10 mg orally twice daily while she is here at the hospital, after which she will be switched over to apixaban 5 mg orally twice daily at discharge. Further recommendations will be given as per hospital course. cc: Leeroy Veliz MD
[2018-05-08 14:19] LABS: BILIRUBIN URINE NEGATIVE (NEGATIVE); BLOOD URINE NEGATIVE (NEGATIVE); CLARITY CLEAR (CLEAR); COLOR YELLOW; GLUCOSE URINE NEGATIVE (NEGATIVE); KETONE URINE NEGATIVE (NEGATIVE); LEUKOCYTES URINE TRACE (NEGATIVE); NITRITE URINE NEGATIVE (NEGATIVE); PH URINE 6.5; PROTEIN URINE NEGATIVE (NEGATIVE); SP GRAVITY URINE 1.015; UROBILINOGEN URINE NORMAL
[2018-05-08 14:49] LABS: URINE BACTERIA 1+ /HFP; URINE CAST NONE SEEN /LPF; URINE CRYSTAL NONE SEEN /HPF; URINE EPITHELIAL CELLS <10 /HPF (<10); URINE SOURCE CLEAN CATCH; URINE WBC <10 /HPF (<10); URINE YEAST NONE SEEN /HPF
[2018-05-08] MEDS: FLONASE NAS SCH (14:56)
[2018-05-08] MEDS: ZITHROMAX 500 MG/NS 500 MG/250 ML IVPB IV SCH (16:54)
[2018-05-08] MEDS: CRESTOR PO SCH (21:34)
[2018-05-08] MEDS: NS 1,000 ML IV SCH (21:38)
[2018-05-09] MEDS: DUONEB (A & A) INH SCH ×6 (03:23→23:05)
[2018-05-09] MEDS: HUMALOG (PARKWAY) SUBQ SCH ×4 (06:05→21:40)
[2018-05-09] MEDS: NS 1,000 ML IV SCH ×2 (06:22→12:21)
[2018-05-09 07:35] LABS: BASO# 0.03 X1000 (0.0-0.2); BASO% 0.4 % (0.0-0.8); EOS% 4.4 % (0.0-10.0); HEMOGLOBIN 9.7 g/dL (12.0-16.0); IMM GRAN# 0.07 X1000 (0.0-0.04); LYMPH# 1.22 X1000 (1.2-3.4); MCH 25.3 PG (27-31); MCHC 30.3 g/dL (33-37); MCV 83.3 FL (81-99); MONO% 8.9 % (1.7-9.3); NEUT# 4.55 X1000 (1.4-6.5); NEUT% 67.3 % (42.2-75.2); PLT 318 X1000 (130-400); RBC 3.84 XMIL (4.2-5.4); RDW 16.3 % (11.5-14.5); WBC 6.77 X1000 (4.8-10.8)
[2018-05-09 08:01] LABS: CREATININE 1.2 mg/dL (0.5-0.9); POTASSIUM 4.3 mmol/L (3.5-5.1)
[2018-05-09] MEDS: ELIQUIS PO SCH ×2 (08:47→21:43)
[2018-05-09] MEDS: ZEBETA PO SCH (08:47)
[2018-05-09] MEDS: JANUVIA PO SCH (08:47)
[2018-05-09] MEDS: PROZAC PO SCH (08:47)
[2018-05-09] MEDS: NEXIUM PO SCH (08:48)
[2018-05-09] MEDS: GLUCOPHAGE PO SCH ×2 (08:48→18:43)
[2018-05-09] MEDS: COZAAR PO SCH (08:48)
[2018-05-09] MEDS: SINGULAIR PO SCH (08:48)
[2018-05-09] MEDS: FLONASE NAS SCH (08:48)
[2018-05-09] MEDS: ROCEPHIN 1 GM in NS 50 ML IV SCH (08:50)
[2018-05-09] MEDS: NORCO-5 PO SCH ×2 (08:57→21:43)
[2018-05-09] MEDS: ZITHROMAX PO SCH (08:58)
[2018-05-09] MEDS: CRESTOR PO SCH (21:43)
--- NOTE | 2018-05-09 23:33 | PROGRESS NOTE ---
DATE: 05/09/2018 SUBJECTIVE: The patient notes that she is feeling better. Still having cough and congestion. Still having shortness of breath. Has not really been out of bed. PHYSICAL EXAMINATION: Vital Signs: Temperature 98, pulse 79, respiratory rate 20, blood pressure 157/51. General: Patient is awake, alert, currently in no respiratory distress. She is pleasant to talk with. HEENT: Normocephalic. Neck: Supple. Cardiovascular: Regular rate. Chest: Clear. Abdomen: Soft. Extremities: Moves all extremities. ASSESSMENT: 1. Left lower lobe pneumonia. 2. Recent pulmonary emboli. 3. Lower extremity deep venous thrombosis. 4. Type 2 diabetes. 5. Hypertension. PLAN: We will continue patient in the hospital, change to p.o. azithromycin. Continue Rocephin and Eliquis. Hopefully, home over the next 1 or 2 days. cc: Vinny Allen MD
[2018-05-10] MEDS: NS 1,000 ML IV SCH (01:08)
[2018-05-10] MEDS: DUONEB (A & A) INH SCH ×3 (03:08→11:08)
[2018-05-10] MEDS: HUMALOG (PARKWAY) SUBQ SCH (06:29)
[2018-05-10 06:34] LABS: HEMATOCRIT 32.5 % (37.0-47.0); MCH 25.7 PG (27-31); MCHC 30.8 g/dL (33-37); MCV 83.5 FL (81-99); MPV 9.6 FL (7.4-10.4); RBC 3.89 XMIL (4.2-5.4); RDW 16.2 % (11.5-14.5); WBC 7.85 X1000 (4.8-10.8)
[2018-05-10] MEDS ORDERED: NEXIUM PO SCH (07:00)
[2018-05-10 07:19] LABS: ALBUMIN 3.5 g/dL (3.5-5.0); CALCIUM 9.1 mg/dL (8.8-10.2); POTASSIUM 4.3 mmol/L (3.5-5.1); TOTAL BILIRUBIN 0.2 mg/dL (0.20-1.00); TOTAL PROTEIN 6.1 g/dL (6.3-8.3)
[2018-05-10] MEDS: PROZAC PO SCH (08:59)
[2018-05-10] MEDS: ZITHROMAX PO SCH (08:59)
[2018-05-10] MEDS: ZEBETA PO SCH (08:59)
[2018-05-10] MEDS: JANUVIA PO SCH (08:59)
[2018-05-10] MEDS: COZAAR PO SCH (08:59)
[2018-05-10] MEDS: GLUCOPHAGE PO SCH (08:59)
[2018-05-10] MEDS: SINGULAIR PO SCH (09:00)
[2018-05-10] MEDS: ELIQUIS PO SCH (09:00)
[2018-05-10] MEDS ORDERED: OMNICEF PO SCH (09:00)
[2018-05-10] MEDS: FLONASE NAS SCH (09:01)
[2018-05-10] MEDS: NORCO-5 PO SCH (09:10)
[2018-05-10] MEDS ORDERED: ZOFRAN ODT PO ONE (11:52)
[2018-05-10 12:04] VITALS: BP 149/60
--- NOTE | 2018-05-10 12:45 | DISCHARGE SUMMARY ---
ADMISSION DATE: 05/07/2018 DISCHARGE DATE: 05/10/2018 DIAGNOSES: 1. Left lower lobe pneumonia. 2. Dyspnea. 3. Recent diagnosis of bilateral pulmonary embolism. 4. Recent diagnosis of left lower extremity deep venous thrombosis. 5. Diabetes mellitus type 2. 6. Hypertension. DIAGNOSTICS: 1. Chest x-ray revealed left lower lobe infiltrate. 2. Blood cultures x2 revealed no growth after 48 hours. 3. Urine culture revealed no growth. HOSPITAL COURSE: Ms. Garcia presented to the emergency room on 05/07/2018 after being out of the hospital less than 48 hours, stating that she had increasing shortness of breath. She was found to have a small left lower lobe infiltrate. Blood cultures were negative. She was initially treated with azithromycin and Rocephin, and she has been transitioned over to Omnicef and azithromycin orally for discharge. She has a cough, although she states this is better. She states that her shortness of breath has improved. Thankfully, she is ready for discharge. PHYSICAL EXAMINATION: Discharge Vital Signs: Blood pressure is 165/60 with a heart rate of 80, respirations 18, temperature is 98 degrees oral with room air sats of 96% to 98%. Cardiovascular: Regular rate and rhythm. S1 and S2 appreciated. Pulmonary: Breath sounds are clear with no increased work of breathing noted. Chest rises and falls symmetrically with respiration. Gastrointestinal: Abdomen is soft, nontender, nondistended with bowel sounds in all 4 quadrants. Neurologic: She is alert and oriented x3. DISCHARGE MEDICATIONS: 1. Eliquis 5 mg p.o. b.i.d. 2. Enteric-coated aspirin 81 mg p.o. daily. 3. Zebeta 1 tablet p.o. daily. 4. Nexium 40 mg p.o. daily. 5. Prozac 40 mg p.o. daily. 6. Flonase Allergy Relief 2 sprays daily. 7. [place] 5 one p.o. b.i.d. 8. Losartan 100 mg p.o. daily. 9. Glucophage 1000 mg p.o. b.i.d. 10. Singulair 10 mg p.o. daily. 11. Crestor 10 mg p.o. daily. 12. Januvia 50 mg p.o. daily. 13. Omnicef 300 mg p.o. b.i.d. for 5 days. 14. Azithromycin 250 mg p.o. daily for 5 days. FOLLOWUP: She needs to call Dr. Mcfarland's office in the morning to schedule an appointment in the next 1 to 2 weeks. DISCHARGE INSTRUCTIONS: She has been instructed to call to be seen sooner or return to the emergency room for increasing shortness of breath, any fevers, chills, temperature greater than 101, any chest pain, palpitations, syncope, dizziness, or for any questions or concerns that she may have. DISPOSITION: She is being discharged home in stable condition with family members. TIME SPENT: This is a greater than 30-minute discharge. Dictated by SHANTHI Kohli for Vinny Allen MD This chart was documented by, SHANTHI Kohli and accurately reflects the services performed, treatment plan and medical decisions as attested by the providers signature Vinny Allen MD. cc: SHANTHI Kohli MD Akram Haggag, MD
--- NOTE | 2018-05-11 03:07 | DISCHARGE SUMMARY ---
ADMISSION DATE: 05/07/2018 DISCHARGE DATE: 05/10/2018 ADDENDUM: The patient was seen and examined by myself. Full note dictated and discussed with the nurse practitioner. On discharge patient is awake, alert and she is in no distress. She is able to sit up on her own as well as ambulate short distances. We will continue her antibiotics at home with Omnicef and azithromycin. Continue her Eliquis. Please see full note. cc: Vinny Allen MD
== END 2018-05-10 13:10 | disposition home or self-care (01) | DRG 193 ==
LOC: P.ED 11:39 → P.MEDSURG 16:12 → SUATTDRO 16:12
PROVIDERS: ATTEND Family Medicine
CPT/HCPCS: 36415; 71020; 71046; 80048; 80053; 81001; 82550; 82948; 83605; 83880; 84484; 85025; 85027; 85379; 85610; 85730; 87040; 87088; 93005; 94640; 94761; 94799; 96374; 99285; A9270; J0456; J0696; J7030; XXXXX

== ENCOUNTER 2018-12-27 08:03 | Observation (INO) ==
[2018-12-27] MEDS ORDERED: NS 1,000 ML IV PRN (08:14)
--- NOTE | 2018-12-27 08:46 | EKG Report ---
Test Performed on : 12/27/2018 08:35:00 AM Test Reason : stroke symptoms Blood Pressure : / mmHG Vent. Rate : 055 BPM Atrial Rate : 055 BPM P-R Int : 208 ms QRS Dur : 080 ms QT Int : 396 ms P-R-T Axes : 082 002 034 degrees QTc Int : 378 ms Undetermined rhythm Minimal voltage criteria for LVH, may be normal variant Borderline ECG When compared with ECG of 07-MAY-2018 13:59, Current undetermined rhythm precludes rhythm comparison, needs review T wave inversion no longer evident in Anterior leads QT has shortened Unconfirmed Result
[2018-12-27 08:48] LABS: BASO# 0.02 X1000 (0.0-0.2); BASO% 0.2 % (0.0-0.8); EOS# 0.26 X1000 (0.0-0.7); EOS% 2.3 % (0.0-10.0); HEMATOCRIT 39.9 % (37.0-47.0); HEMOGLOBIN 12.6 g/dL (12.0-16.0); IMM GRAN# 0.08 X1000 (0.0-0.04); IMM GRAN% 0.7 % (0.0-0.5); LYMPH# 1.61 X1000 (1.2-3.4); LYMPH% 14.2 % (20.5-51.1); MCH 27.2 PG (27-31); MCHC 31.6 g/dL (33-37); MONO# 0.76 X1000 (0.11-0.59); MONO% 6.7 % (1.7-9.3); MPV 9.7 FL (7.4-10.4); NEUT# 8.61 X1000 (1.4-6.5); NEUT% 75.9 % (42.2-75.2); PLT 410 X1000 (130-400); RBC 4.64 XMIL (4.2-5.4); RDW 14.8 % (11.5-14.5); WBC 11.34 X1000 (4.8-10.8)
--- NOTE | 2018-12-27 08:58 | PROVIDER DOCUMENTATION ---
HPI-Neurological Disorder - General Chief Complaint: Altered Mental Status Stated Complaint: AMS Time Seen by Provider: 12/27/18 08:13 Source: patient, EMS Allergies/Adverse Reactions: Patient Allergies Allergy/AdvReac Type Severity Reaction Status Date / Time erythromycin base Allergy HIVES Verified 05/07/18 12:04 [From Erythrocin] Penicillins AdvReac HIVES Verified 05/07/18 12:04 Tetracyclines AdvReac HIVES Verified 05/07/18 12:04 Home Medications: Home Medication List Medication Instructions Recorded Confirmed Last Taken Type Bisoprolol [Zebeta] 1 tab PO DAILY 04/30/18 12/27/18 05/06/18 09:00 History Fluoxetine HCl [Prozac] 40 mg PO DAILY 04/30/18 12/27/18 05/06/18 09:00 History Fluticasone Propionate [Flonase 2 spray ORDERED DAILY 04/30/18 12/27/18 05/06/18 21:00 History Allergy Relief] Hydrocodone/Acetaminophen 1 each PO BID 04/30/18 12/27/18 05/07/18 17:00 History [Hydrocodone-Acetamin 5-300 mg] Losartan Potassium 100 mg PO DAILY 04/30/18 12/27/18 05/06/18 09:00 History Montelukast Sodium [Singulair] 10 mg PO DAILY 04/30/18 12/27/18 05/06/18 21:00 History ROSUVAstatin [Crestor] 10 mg PO DAILY 04/30/18 12/27/18 05/06/18 21:00 History Aspirin [Adult Low Dose Aspirin EC] 81 mg PO DAILY #30 tablet. 05/04/18 12/27/18 05/06/18 21:00 Rx Metformin [Glucophage] 1,000 mg PO BID CC #60 tab 05/04/18 12/27/18 05/06/18 21:00 Rx Sitagliptin [Januvia] 50 mg PO DAILY #30 tab 05/04/18 12/27/18 05/06/18 21:00 Rx Lisinopril 20 mg PO DAILY 12/27/18 12/27/18 Unknown History Ranitidine [Zantac] 150 mg PO DAILY 12/27/18 12/27/18 Unknown History SIMVAstatin [Zocor] 40 mg PO QHS 12/27/18 12/27/18 Unknown History Tamsulosin [Flomax] 0.4 mg PO DAILY 12/27/18 12/27/18 Unknown History - History of Present Illness-Neuro Nature of Presenting Problem: Patient is unsure what happened this morning, thinks she may have had a stroke as she can't remember what happened. Her at bedside states she woke up at 6:45, states didn't feel well, had 1 episode of frothy emesis and was confused about certain recent events that were important to them. 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 States they were both scared she might be having a stroke. Patient has no recollection (retrograde amnesia) of these events, just remembers feeling "bad," and nauseaus. She is pretty much back to baseline at this time, except with amnesia. Patient is currently on Eliquis for PE and takes a Baby ASA at night. 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 Mcfarland) Review of Systems - Adult - REVIEW OF SYSTEMS - ADULT Constitutional: reports: no symptoms reported Eyes: reports: no symptoms reported Ears, Nose, Mouth & Throat: reports: no symptoms reported Cardiovascular: reports: no symptoms reported Respiratory: reports: no symptoms reported Gastrointestinal: reports: no symptoms reported Genitourinary: reports: no symptoms reported Musculoskeletal: reports: no symptoms reported Integumentary: reports: no symptoms reported Neurological: reports: no symptoms reported Psychiatric: reports: no symptoms reported Endocrine: reports: no symptoms reported Hematologic/Lymphatic: reports: no symptoms reported Allergic/Immunologic: reports: no symptoms reported All Other Systems: Reviewed and Negative Past History - Adult - PAST MEDICAL HISTORY-ADULT Review of Records: reports: Old Records Reviewed, Nursing Assessment Review, Medications Reviewed, Social history reviewed & non-contributory. Major Childhood Illnesses: reports: denies history Cardiovascular: reports: blood clots, HTN, hyperlipidemia Respiratory: reports: denies history Gastrointestinal: reports: GERD Obstetrical/Gynecological: reports: denies history Genitourinary: reports: denies history Musculoskeletal: reports: chronic pain, osteoporosis, other (bilateral knee DJD) Neurological: reports: CVA (received TPA, no residual deficits) Psychiatric: reports: denies history Endocrine/Immune: reports: Diabetes Other Conditions: reports: denies history - PRIOR SURGERIES/PROCEDURES Surgical/Procedure History: reports: reviewed, not pertinent - IMMUNIZATION STATUS Childhood Immunizations: UTD Flu Vaccine: NUTD - FAMILY HISTORY Family History: diabetes, CAD over 55 yo, cancer, CVA/TIA - SOCIAL HISTORY Smoking: denies Substance Use: none/never Alcohol Use Frequency: never Living Situation: family Physical Exam- Neurological - Physical Exam-Neuro Initial Vital Signs Reviewed: Yes (VSSAF, hypertensive) General Appearance: appears well, alert, no apparent distress Eye Exam: bilateral eye: normal inspection, PERRL, EOMI HENMT: normocephalic/atraumatic, moist mucous membranes, normal ENT inspection, pharynx normal Neck: non-tender, full range of motion, supple, normal inspection Respiratory: chest non-tender, lungs clear, normal breath sounds, no pleuratic chest pain, no respiratory distress, no accessory muscle use Cardiovascular: normal peripheral pulses, regular rate, rhythm, no edema, no gallop, no JVD, no murmur Abdominal Exam: normal bowel sounds, non tender, soft, no organomegaly, no pulsatile mass Lymphatic: no adenopathy Extremity: normal range of motion, non-tender, normal gait, normal inspection, no pedal edema, no calf tenderness, 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 Exam: normal hearing, normal speech, PERRL Coordination/Gait: normal finger to nose, normal gait, negative Romberg's sign Motor/Sensory: no motor deficit, no sensory deficit, no pronator drift, negative Babinski's sign 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 II-XII nml as tested, grossly normal, no motor/sensory deficits, other (Patient has limited retrograde amnesia only) Integumentary: normal color, normal turgor, warm/dry Psych/Mental Status: normal mood/affect, normal thought content, normal thought process, oriented x 3 - Glascow Coma Scale Best Eye Response: (4) open spontaneously Best Verbal Response: (5) oriented Best Motor Response: (6) obeys commands Total Glascow Score: 15 Progress - PLAN OF CARE/RESULTS Progress/Plan/Lab Results: Vital Signs - 8 hr 12/27/18 08:05 12/27/18 08:12 12/27/18 09:26 Temperature 98 F Pulse Rate 72 58 L Respiratory Rate 18 20 Blood Pressure 207/97 162/68 O2 Sat by Pulse Oximetry 96 99 Laboratory Results - last 24 hr 12/27/18 12/27/18 12/27/18 08:15 08:24 08:25 WBC 11.34 H RBC 4.64 Hgb 12.6 Hct 39.9 MCV 86.0 MCH 27.2 MCHC 31.6 L RDW Std Deviation 14.8 H Plt Count 410 H MPV 9.7 Immature Gran % (Auto) 0.7 H Neut % (Auto) 75.9 H Lymph % (Auto) 14.2 L Cook % (Auto) 6.7 Eos % (Auto) 2.3 Baso % (Auto) 0.2 Immature Gran # (Auto) 0.08 H Neut # (Auto) 8.61 H Lymph # (Auto) 1.61 Cook # (Auto) 0.76 H Eos # (Auto) 0.26 Baso # (Auto) 0.02 PT INR PTT (Actin FS) Sodium Potassium Chloride Carbon Dioxide Anion Gap BUN Creatinine Estimated GFR/1.73 m2 BUN/Creatinine Ratio Glucose POC Glucose 108 H Calculated Osmolality Calcium Total Bilirubin AST ALT Alkaline Phosphatase Troponin T Sbj-A-Rfwxauxtifj Pept Total Protein Albumin Globulin Albumin/Globulin Ratio Urine Source CLEAN CATCH Urine Color YELLOW Urine Clarity CLEAR Urine pH 5.0 Ur Specific [place] 1.015 Urine Protein NEGATIVE Urine Ketones NEGATIVE Urine Blood NEGATIVE Urine Nitrite NEGATIVE Urine Bilirubin NEGATIVE Urine Urobilinogen NORMAL Urine Microscopic RBC Not Reportable Urine WBC TRACE A Urine Microscopic WBC 1-5 Ur Epithelial Cells <10 Urine Glucose NEGATIVE 12/27/18 12/27/18 12/27/18 08:25 08:25 08:25 WBC RBC Hgb Hct MCV MCH MCHC RDW Std Deviation Plt Count MPV Immature Gran % (Auto) Neut % (Auto) Lymph % (Auto) Cook % (Auto) Eos % (Auto) Baso % (Auto) Immature Gran # (Auto) Neut # (Auto) Lymph # (Auto) Cook # (Auto) Eos # (Auto) Baso # (Auto) PT 14.1 INR 1.04 PTT (Actin FS) 34.5 Sodium 141 Potassium 5.0 Chloride 104 Carbon Dioxide 20 L Anion Gap 17 BUN 45 H Creatinine 1.5 H Estimated GFR/1.73 m2 34 BUN/Creatinine Ratio 30 Glucose 122 H POC Glucose Calculated Osmolality 294 Calcium 10.1 Total Bilirubin 0.20 AST 21 ALT 16 Alkaline Phosphatase 40 Troponin T Unx-F-Ftqytoblddx Pept 431 H Total Protein 7.0 Albumin 4.6 Globulin 2.0 Albumin/Globulin Ratio 2.0 Urine Source Urine Color Urine Clarity Urine pH Ur Specific [place] Urine Protein Urine Ketones Urine Blood Urine Nitrite Urine Bilirubin Urine Urobilinogen Urine Microscopic RBC Urine WBC Urine Microscopic WBC Ur Epithelial Cells Urine Glucose 12/27/18 08:25 WBC RBC Hgb Hct MCV MCH MCHC RDW Std Deviation Plt Count MPV Immature Gran % (Auto) Neut % (Auto) Lymph % (Auto) Cook % (Auto) Eos % (Auto) Baso % (Auto) Immature Gran # (Auto) Neut # (Auto) Lymph # (Auto) Cook # (Auto) Eos # (Auto) Baso # (Auto) PT INR PTT (Actin FS) Sodium Potassium Chloride Carbon Dioxide Anion Gap BUN Creatinine Estimated GFR/1.73 m2 BUN/Creatinine Ratio Glucose POC Glucose Calculated Osmolality Calcium Total Bilirubin AST ALT Alkaline Phosphatase Troponin T < 0.010 Cfy-P-Uxuociazgfc Pept Total Protein Albumin Globulin Albumin/Globulin Ratio Urine Source Urine Color Urine Clarity Urine pH Ur Specific [place] Urine Protein Urine Ketones Urine Blood Urine Nitrite Urine Bilirubin Urine Urobilinogen Urine Microscopic RBC Urine WBC Urine Microscopic WBC Ur Epithelial Cells Urine Glucose Orders Category Date Time Status Cardiac Monitoring DIRECTED Care 12/27/18 08:14 Active Finger Stick Blood Sugar (ED) DIRECTED Care 12/27/18 08:14 Active Oxygen Therapy- ED Nursing DIRECTED Care 12/27/18 08:14 Active Saline Loc NOW Care 12/27/18 08:14 Active CHEST-PORTABLE [RAD] Stat Exams 12/27/18 08:[address] HEAD W/O CONTRAST [CT] Stat Exams 12/27/18 08:55 Completed CBC WITH ELECTRONIC DIFF [HEME] Stat Lab 12/27/18 08:25 Completed COMPREHENSIVE METABOLIC PANEL [CHEM] Stat Lab 12/27/18 08:25 Completed PRO B-NATRIURETIC PEPTIDE Stat Lab 12/27/18 08:25 Completed PROTIME WITH INR [COAG] Stat Lab 12/27/18 08:25 Completed PTT [COAG] Stat Lab 12/27/18 08:25 Completed TROPONIN T Stat Lab 12/27/18 08:[address] W/POSS RFLX CULT [URINALYSIS] Stat Lab 12/27/18 08:15 Completed 0.9% Sodium Chloride Inj [Ns] 1,000 ml Med 12/27/18 08:14 Active IV 999 mls/hr CefTRIAXONE [Rocephin] 1 gm Med 12/27/18 09:50 Active 0.9% Sodium Chloride Inj [Ns] 50 ml IV NOW EKG [EKG] Stat Ther 12/27/18 08:14 Draft Result Diagrams: 12/27/18 08:25 12/27/18 08:25 - REASSESSMENT Reassessment #1 Time Reassessed: 09:56 Status: unchanged (Still with retrograde amnesia) - EKG 1 Time of EKG reading by physician:: 08:37 EKG Read and Signed by:: Rubin Epps EKG Interpretation (*Must complete 3 of following elements*): Abnormal Rate: 55 Rhythm: sinus tanya [place]: normal QRS: normal [place] Interval: prolonged (1 degree av block) ST Wave: non-specific ST changes - XRAY 1 XRAY Study: Chest Impression: Normal, See EMR Report ( EXAM: CHEST-PORTABLE HISTORY: stroke symptoms TECHNIQUE: Single view COMPARISON: 12/05/2018 FINDINGS: The lungs are well expanded. The heart is not enlarged. The vessels are not distended. There are no infiltrates. No effusion identified. IMPRESSION: Negative exam. Electronically signed by Denzel Stern 12/27/2018 9:27 AM 12/27/18926 Interpreting Physician: Denzel Stern MD Dictated Date/Time: 12/27/18926 cc: Rubin Epps MD; Niyah Mcfarland MD) - CT/MRI 1 MRI Study: Head Impression: Abnormal, See EMR Report (EXAM: CT HEAD W/O CONTRAST HISTORY: altered mental status TECHNIQUE: CT head without contrast COMPARISON: 12/15/2017 FINDINGS: No parenchymal hemorrhage. No epidural or subdural hematoma. No subarachnoid hemorrhage. Mild atrophy. No mass identified on this noncontrasted exam. No hydrocephalus. No sinus opacification. IMPRESSION: 1.No hemorrhage 2.Mild atrophy This exam was performed using automated exposu re control, adjustment of mA or kV according to patient size, and/or use of iterative reconstruction technique. Electronically signed by Denzel Stern 12/27/2018 9:51 AM 12/27/18 0951 Interpreting Physician: Denzel Stern MD Dictated Date/Time: 12/27/18 0948 cc: Rubin Epps MD; Niyah Mcfarland MD) - CONSULTS/PCP/HOSPITALIST Notification #1 *Consult/PCP/Hospitalist*: [place] paged at [phone] Time Discussed: 10:18 Consult Disposition: Admit Departure - Departure Date of Disposition Decision: 12/27/18 Time of Disposition Decision: 09:56 DIAGNOSIS: Transient ischemic attack (TIA) Disposition: ADMITTED INPATIENT 09 Certified Medical Emergency: Emergent Condition: Stable Referrals and Follow-Ups: Niyah Mcfarland MD [Primary Care Provider] - - Critical Care Note This patient required my direct & personal management of CC.: No Attestation - Physician/ SILVANA Attestation Patient care was provided by Advanced Practice Provider:: No The physician spent face to face time with patient:: Yes Advanced Practice Provider documentation review:: Supervising physician onsite and consulted in the evaluation and care of this patient. The physician did have a face to face encounter with the patient. - NIH Stroke Scale NIH Type: Initial Evaluation Level of Consciousness: 0-Alert LOC Questions (ask month and age): 0-Answers Both Correctly LOC Commands (ask to open & close eyes;make a fist, let go): 0-Obeys Both Correctly Best Gaze (horizontal eye movement): 0-Normal Visual (use finger movement, counting or visual threat): 0-No Visual Loss Facial Palsy (show teeth or raise eyebrows & close eyes tght: 0-Symmetrical Move ment Motor Function-left arm: 0-Normal Motor Function-right arm: 0-Normal Motor Function-left le-Normal Motor Function-right le-Normal Limb Ataxia(fjjhmj-aqel-kftddf, or heel to coello): 0-No Ataxia Sensory(pin prick to face,arms,trunk,legs-compare side/side): 0-No Ataxia Best Language(name item/read sentence.Ex-Down to Earth): 0-No Aphasia Dysarthria(Pt read words or say words Ex.Mama,Tip-Top,Thanks: 0-Normal Articulation Extinction and Inattention: 0-Normal NIH Total Score: 0 Modified Powell Score Criteria: 0-no symptoms Stroke tPA Guidelines - Inclusion Criteria for IV tPA 18 years old or older: Yes Ischemic stroke with measurable deficit: No Onset <3 hours ago *OR* 3-4.5 hours ago: Yes - Exclusion Criteria for IV tPA Evidence of intracranial hemorrhage on CT: No Presentation suggest SAH: No CT reveals defined area of hypodensity: No Evidence of AVM, neoplasm, aneurysm: No Seizure at stroke onset: No Active internal bleeding or acute trauma: No Platelet Count Less Than 100,000: No Heparin Within Last 48 HRS (PTT >Lab normal limits): No INR > 1.7 (warfarin use): No Use IIB/IIIA inhibitors within 24 hours: No Serious Head Trauma Within Last 3 Months: No Arterial Puncture Within Last 7 Days: No Lumbar Puncture Within Last 7 Days: No Repeated systolic Blood Pressure >185 or Diastolic >110: No - Additional Exclusion Criteria for IV tPA Currently on Coumadin: No (Currently on ELIQUIS) Patient older than 80: No Prior stroke and diabetes: No Baseline NIHSS score > 25: No - Relative Contraindications to IV tPA CT reveals extensive area of infarct (>1/3 MCA territory): No Minor or rapidly improving stroke symptoms: Yes Major Surgery or Serious Trauma In Previous 14 Days: No AMI within 3 months: No Gastrointestinal or Urinary Tract hemorrhage in Past 21 Days: No Post - AMI pericarditis: No Blood Glucose Less Than 50 mg/dl or Greater Than 400 mg/dl: No - Consultation tPA risks/benefits explained to:: family, patient Candidate for:: NOT A CANDIDATE (NIHSS normal, symptoms minimal, already on Eliquis)
[2018-12-27 09:09] LABS: ALBUMIN 4.6 g/dL (3.5-5.0); CALCIUM 10.1 mg/dL (8.8-10.2); CREATININE 1.5 mg/dL (0.5-0.9); TOTAL BILIRUBIN 0.2 mg/dL (0.20-1.00)
[2018-12-27 09:17] LABS: INR 1.04; PROTIME 14.1 Seconds (11.0-16.0)
[2018-12-27 09:18] LABS: PTT 34.5 Seconds (22.3-41.8)
--- NOTE | 2018-12-27 09:30 | Diag Imaging Result Doc PS360 ---
EXAM: CHEST-PORTABLE HISTORY: stroke symptoms TECHNIQUE: Single view COMPARISON: 12/05/2018 FINDINGS: The lungs are well expanded. The heart is not enlarged. The vessels are not distended. There are no infiltrates. No effusion identified. IMPRESSION: Negative exam. Electronically signed by Denzel Stern 12/27/2018 9:27 AM
[2018-12-27 09:31] LABS: BILIRUBIN URINE NEGATIVE (NEGATIVE); BLOOD URINE NEGATIVE (NEGATIVE); GLUCOSE URINE NEGATIVE (NEGATIVE); KETONE URINE NEGATIVE (NEGATIVE); LEUKOCYTES URINE TRACE (NEGATIVE); NITRITE URINE NEGATIVE (NEGATIVE); PROTEIN URINE NEGATIVE (NEGATIVE); SP GRAVITY URINE 1.015; UROBILINOGEN URINE NORMAL
[2018-12-27 09:32] LABS: CLARITY CLEAR (CLEAR); COLOR YELLOW
[2018-12-27 09:40] LABS: URINE EPITHELIAL CELLS <10 /HPF (<10); URINE SOURCE CLEAN CATCH
[2018-12-27] MEDS ORDERED: ROCEPHIN 1 GM in NS 50 ML IV ONE (09:50)
--- NOTE | 2018-12-27 09:53 | Diag Imaging Result Doc PS360 ---
EXAM: CT HEAD W/O CONTRAST HISTORY: altered mental status TECHNIQUE: CT head without contrast COMPARISON: 12/15/2017 FINDINGS: No parenchymal hemorrhage. No epidural or subdural hematoma. No subarachnoid hemorrhage. Mild atrophy. No mass identified on this noncontrasted exam. No hydrocephalus. No sinus opacification. IMPRESSION: 1.No hemorrhage 2.Mild atrophy This exam was performed using automated exposure control, adjustment of mA or kV according to patient size, and/or use of iterative reconstruction technique. Electronically signed by Denzel Stren 12/27/2018 9:51 AM
[2018-12-27] MEDS ORDERED: ZOFRAN ODT PO PRN (10:21)
[2018-12-27] MEDS ORDERED: TYLENOL PO PRN (10:21)
[2018-12-27] MEDS ORDERED: FLU VACCINE IM ONE (12:09)
[2018-12-27] MEDS ORDERED: NS 1,000 ML IV SCH (16:15)
--- NOTE | 2018-12-27 17:30 | HISTORY AND PHYSICAL ---
CHIEF COMPLAINT: Confusion or dysarthria. HISTORY: This is a 73 -year-old female with history of PE, CVA, DVT, who came in today with an acute episode of confusion. She does not remember things that have happened. She has had an episode like this before and was thought that she had possible stroke then but she cannot remember what happened. Her states that she was 89, did not feel well. She threw up. I think she may have had some diarrhea and did not remember certain events. The patient has pretty much completely recovered and there was concern over the possible recurrent stroke, so she was admitted for treatment. She really does not have any deficits, but she never really did have any deficits. She did have some azotemia with acute kidney injury, some mild leukocytosis. She had a very elevated blood pressure when she first came in. No evidence of UTI. PAST MEDICAL HISTORY: 1. Type 2 diabetes. 2. Hypertension. 3. History of pneumonia. 4. PE number. 5. DVT. 6. History of CVA. PAST SURGICAL HISTORY: 1. Cholecystectomy. 2. Hysterectomy. 3. Nose surgery. FAMILY HISTORY: Positive for diabetes, CVA, CAD in father. Mother had Alzheimer's. SOCIAL HISTORY: No tobacco or ethanol. Lives with her . ALLERGIES: Erythromycin, penicillin, and tetracyclines and also reports sulfa. HOME MEDICATIONS: As follows Eliquis 5 which should be b.i.d., fenofibrate 145 daily, fluoxetine 40 daily, losartan 100 daily, metformin 850 b.i.d., Nexium 40 daily, Singulair 10 daily. Bisoprolol 5 daily. REVIEW OF SYSTEMS: Otherwise negative except for the recent nausea, vomiting, but she attributes to increased maybe magnesium supplements. PHYSICAL EXAMINATION: Blood pressure is 159/52, heart rate of 58, respiratory rate 18, temperature 97.9 degrees 100% on room air. Cardiovascular: Regular rate and rhythm. Pulmonary: Bilateral breath sounds clear to auscultation. SHAKIRA was soft, nontender, nondistended. Bowel sounds are positive. Neuro exam: Nonfocal. She is morbidly obese. LABORATORY DATA: BUN and creatinine are 45, 1.5 with previous of 19 and 1. White count 11, hemoglobin and hematocrit 12 and 39, platelets of 410,000. Urine was negative. PROBLEM LIST: 1. Transient ischemic attack versus cerebrovascular accident versus encephalopathy. The patient is stable currently. We will continue to monitor. We will rule out cerebrovascular accident with an MRI and an echocardiogram and carotid. I will continue to monitor. 2. Pulmonary embolus, deep venous thrombosis. We will continue treatment with anticoagulation. She is on Eliquis and follow. 3. Acute kidney injury. We will get urine electrolytes and monitor. Hold ARB. Hold nonsteroidal antiinflammatory drugs . Gentle hydration and follow closely. cc: Randal Cuello MD
[2018-12-27] MEDS ORDERED: IMODIUM PO PRN (17:35)
[2018-12-27] MEDS: HUMULIN R (PARKWAY) SUBQ SCH ×2 (18:47→22:05)
[2018-12-27] MEDS: ASPIRIN EC PO SCH (18:54)
--- NOTE | 2018-12-27 19:11 | Vascular Study Report ---
EXAM: Carotid Ultrasound INDICATION: tia TECHNIQUE: COMPARISON: None. FINDINGS: Right: There is no significant atherosclerotic disease involving the right carotid system on grayscale images. The peak systolic velocity measures 78, 132, 56, 46, 72, 93, and 46 cm/s at the right subclavian artery, CCA, bifurcation, proximal ICA, mid ICA, distal ICA, and ECA, respectively. There is antegrade flow in the vertebral artery. The carotid ratio is 0.7. Left: There is trace atherosclerotic plaque at the left carotid bulb. There is no significant atherosclerotic disease involving the remaining left carotid system. The peak systolic velocity measures 100, 105, 68, 64, 71, 76, and 70 cm/s at the left subclavian artery, CCA, bifurcation, proximal ICA, mid ICA, distal ICA, and ECA, respectively. There is antegrade flow in the vertebral artery. The carotid ratio is 0.72. IMPRESSION: Trace atherosclerotic plaque at the left carotid bulb but no evidence of hemodynamically significant stenosis. Electronically signed by Chico Zarate 12/27/2018 7:08 PM
[2018-12-27] MEDS: ELIQUIS PO SCH (22:01)
[2018-12-28 06:11] LABS: BASO# 0.03 X1000 (0.0-0.2); BASO% 0.4 % (0.0-0.8); EOS# 0.53 X1000 (0.0-0.7); EOS% 6.3 % (0.0-10.0); HEMATOCRIT 34.5 % (37.0-47.0); HEMOGLOBIN 10.7 g/dL (12.0-16.0); IMM GRAN# 0.05 X1000 (0.0-0.04); IMM GRAN% 0.6 % (0.0-0.5); LYMPH# 1.92 X1000 (1.2-3.4); LYMPH% 22.9 % (20.5-51.1); MCH 27.1 PG (27-31); MCV 87.3 FL (81-99); MONO# 0.66 X1000 (0.11-0.59); MONO% 7.9 % (1.7-9.3); MPV 8.9 FL (7.4-10.4); NEUT# 5.18 X1000 (1.4-6.5); NEUT% 61.9 % (42.2-75.2); PLT 304 X1000 (130-400); RBC 3.95 XMIL (4.2-5.4); RDW 14.8 % (11.5-14.5); WBC 8.37 X1000 (4.8-10.8)
[2018-12-28 06:28] LABS: CALCIUM 9.2 mg/dL (8.8-10.2); CREATININE 1.2 mg/dL (0.5-0.9); POTASSIUM 5.2 mmol/L (3.5-5.1)
[2018-12-28] MEDS: HUMULIN R (PARKWAY) SUBQ SCH ×2 (06:31→11:19)
[2018-12-28] MEDS ORDERED: NEXIUM PO SCH (07:00)
[2018-12-28 08:12] VITALS: BP 159/57
[2018-12-28] MEDS ORDERED: COZAAR PO SCH (09:00)
[2018-12-28] MEDS ORDERED: SINGULAIR PO SCH (09:00)
[2018-12-28] MEDS ORDERED: GLUCOPHAGE PO SCH (09:00)
[2018-12-28] MEDS ORDERED: TRICOR PO SCH (09:00)
[2018-12-28] MEDS ORDERED: PROZAC PO SCH (09:00)
[2018-12-28] MEDS ORDERED: ELIQUIS PO SCH (09:00)
[2018-12-28] MEDS ORDERED: ZEBETA PO SCH (09:00)
[2018-12-28] MEDS: ELIQUIS PO SCH (10:27)
[2018-12-28] MEDS: ASPIRIN EC PO SCH (10:28)
--- NOTE | 2018-12-28 14:09 | ECHO REPORT ---
ORDER DATE: 12/27/2018 INTERPRETING PHYSICIAN: Dr. Chris Connors. ECHOCARDIOGRAPHIC MEASUREMENTS: 1. Interventricular septum: 0.9 cm. 2. Left ventricular posterior wall: 0.9 cm. 3. Diastolic diameter: 5.6 cm. 4. Left atrium: 4.7 cm. 5. Aorta: 3.1 cm. SUMMARY OF THE 2-DIMENSIONAL IMAGIN. Aortic valve leaflets were trileaflet. 2. Mitral valve was normal. There is mitral annular calcification. 3. Tricuspid valve was normal. 4. There is left atrial enlargement. 5. Normal left ventricular cavity size. Estimated ejection fraction of 65%. 6. Saline contrast study was done. It was negative for patent foramen ovale. 7. There is mild tricuspid regurgitation. Peak velocity across the tricuspid valve was 3 m/sec. 8. Pulmonary artery systolic pressure of 46 to 50 mmHg. 9. There is mild mitral regurgitation. 10. Peak velocity across the aortic valve less than 2 m/sec by Doppler studies. There is no aortic stenosis or regurgitation. 11. There is no pericardial effusion or obvious intracardiac mass or thrombus seen. cc: MD Randal Hidalgo MD
--- NOTE | 2018-12-28 14:21 | Diag Imaging Result Doc PS360 ---
MRI BRAIN W/WO CONTRAST - 12/28/2018 INDICATION: cva COMPARISON: Head CT 12/27/2018 FINDINGS: There is a single tiny focus of restricted diffusion based at the cortex of the superior right frontal lobe. This is near an area of gliosis from prior small focal infarction. The remainder of this infarction is old with no restricted diffusion. Otherwise, no intracranial mass or hemorrhage. No white matter microvascular ischemia. There is no abnormal contrast enhancement. The pituitary is atrophic. IMPRESSION: Tiny acute reinfarction, at the edge of a previous small, old infarct in the lateral right frontal lobe. Electronically signed by Surinder Rangel 12/28/2018 2:18 PM
--- NOTE | 2018-12-29 10:12 | DISCHARGE SUMMARY ---
ADMISSION DATE: 12/27/2018 DISCHARGE DATE: 12/28/2018 PRIMARY CARE PHYSICIAN: Dr. Mcfarland. ADMISSION DIAGNOSES: 1. Transient ischemic attack versus cerebrovascular accident versus encephalopathy. 2. Pulmonary embolus and deep vein thrombosis on current anticoagulation of Eliquis. 3. An acute kidney injury. DISCHARGE DIAGNOSES: 1. An acute cerebrovascular accident. 2. Pulmonary embolus and deep vein thrombosis on current anticoagulation. 3. Acute kidney injury, improved. SUMMARY OF FINDINGS: This is a 73-year-old female, who presented to the emergency room with acute onset of confusion, not remembering things that happened, and felt that she may be having a possible stroke like she had before, but she cannot remember what happened. Her workup showed a head CT that showed no hemorrhage and mild atrophy. We did an echocardiogram that showed an ejection fraction of 65%. Her carotid Doppler study showed trace atherosclerotic plaque at the left carotid bulb, but no evidence of hemodynamically significant stenosis. 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 She is feeling much better today. All of her symptoms seem to have resolved, and so it is felt that she can safely be discharged home. We will increase her Crestor from 10 mg to 20 mg p.o. daily. DISCHARGE MEDICATIONS: Eliquis 5 mg p.o. b.i.d., Zebeta 5 mg p.o. daily, Nexium 40 mg p.o. daily, Fenofibrate 145 mg p.o. daily, fluoxetine 40 mg p.o. daily, montelukast sodium 10 mg p.o. at bedtime, aspirin 81 mg p.o. daily, joint health tablet 2 tablets p.o. daily, vitamin D 5000 units p.o. daily, Flonase 2 sprays nasally b.i.d., super B complex tablet 400 mcg p.o. daily, Chloride 5 one p.o. b.i.d., krill oil 1000 mg soft gel 2 tablets p.o. daily, losartan 100 mg p.o. daily, magnesium 400 mg p.o. daily, Januvia 50 mg p.o. daily, and a new prescription for Crestor 20 mg p.o. daily. She is to stop her previous Crestor of 10 mg p.o. daily. FOLLOWUP: She will need to follow up with her primary care physician in 1 to 2 weeks and call the office for an appointment. She will also need an appointment with Dr. Avalos, Neurology, her first available appointment. DISCHARGE INSTRUCTIONS: All discharge instructions have been reviewed with the patient and she verbalizes understanding. TIME SPENT: This is a 35 minute discharge. Dictated by SHANTHI Garcia for Randal Cuello MD cc: SHANTHI Garcia MD Akram Haggag, MD
== END 2018-12-28 16:58 | disposition home or self-care (01) ==
LOC: SUPCPDRO → P.MEDSURG 08:03 → P.ED 08:03
PROVIDERS: ATTEND Internal Medicine